=== PATIENT | female | born 1990 | race Caucasian/White ===

== ENCOUNTER → 2017-06-21 | Outpatient (CLI) | payer BC ==
--- NOTE | 2017-06-21 17:46 | RADIOLOGY IMAGING REPORT ---
FACILITY: [facility] - [place] PATIENT NAME: Jaky Solano : 1990 MR: [id number] V: [id number] EXAM DATE: ORDERING PHYSICIAN: MYCHAL SUAZO TECHNOLOGIST: Location: [facility] [place] Patient: Jaky Solano : 1990 Visit/Account:[id number] Date of Sevice: 06/21/2017 GALLBLADDER HISTORY: Right upper quadrant pain COMPARISON: None. FINDINGS: Gallbladder: Unremarkable; no stones or sludge. Liver: Negative. Common duct: Normal, 3.5 mm diameter. Pancreas: Partially obscured by bowel, visualized aspects unremarkable. Right kidney: Right kidney appears unremarkable measuring 11.8 cm in length Upper abdominal aorta and IVC: Patent. Ascites: None visualized. IMPRESSION: Unremarkable right upper quadrant ultrasound Report Dictated By: Lexis Chavez MD at 06/21/2017 5:41 PM Report E-Signed By: Lexis Chavez MD at 06/21/2017 5:42 PM WSN:[email or web address]
== END ==
LOC: US 15:41
PROVIDERS: ATTEND Surgery
DX: R10.11 Right upper quadrant pain (principal)
CPT/HCPCS: 76705

== ENCOUNTER 2018-08-27 02:08 | Inpatient (IN) | payer BC ==
[2018-08-27] VITALS (21 sets, daily range): BP systolic 101–132; BP diastolic 58–84; Ht 165.1 cm; Wt 72.6 kg
[~2018-08-27] VITALS: Ht 165.1 cm; Wt 72.6 kg
[~2018-08-27 02:08] MED LIST: CETI10CA8 PO; PREN-127 PO
[2018-08-27] MEDS ORDERED: LR(*) 1000 ML BAG 1,000 ML IV PRN (02:45)
[2018-08-27 03:24] LABS: PLATELET COUNT, AUTOMATED 203 K/uL (150-450)
[2018-08-27] MEDS ORDERED: CITRIC ACID/SOD CIT 15 ML UDC PO ONE (03:40)
[2018-08-27] MEDS ORDERED: METOCLOPRAMIDE 10 MG/2 ML SDV IVP ONE (03:40)
[2018-08-27] MEDS ORDERED: cefOXitin/DEX(*) 2GM/50ML PREM 50 ML IVPB ONE ×2 (03:40→03:51)
[2018-08-27] MEDS ORDERED: FAMOTIDINE 20 MG/50 ML PREMIX IVPB ONE (03:40)
[2018-08-27] MEDS ORDERED: ONDANSETRON 4 MG/2 ML VIAL IVP ONE (03:40)
[2018-08-27] MEDS ORDERED: ONDANSETRON 4 MG/2 ML VIAL ONE (03:51)
[2018-08-27] MEDS ORDERED: METOCLOPRAMIDE 10 MG/2 ML SDV ONE (03:51)
[2018-08-27] MEDS ORDERED: FAMOTIDINE(*) 20MG/50ML PREMIX 50 ML IVPB ONE (03:51)
[2018-08-27] MEDS ORDERED: DIPH-740 PO (04:28)
[2018-08-27] MEDS ORDERED: OXYTOCIN 10 UNIT/ML SDV ONE ×2 (05:08→06:55)
[2018-08-27] MEDS ORDERED: MORPHINE PF 5 MG/10 ML AMP ONE (05:08)
[2018-08-27] MEDS ORDERED: fentaNYL CITR 100 MCG/2 ML AMP ONE (05:08)
[2018-08-27] MEDS ORDERED: KETOROLAC 30 MG/ML VIAL ONE (06:09)
[2018-08-27] MEDS ORDERED: ePHEDrine 25 MG/5 ML DISP.SYR IVP ONE (06:45)
[2018-08-27] MEDS ORDERED: OXYTOCIN 30 UNIT/NS 500 ML 500 ML IV PRN (07:27)
[2018-08-27] MEDS ORDERED: ONDANSETRON 4 MG/2 ML VIAL IV PRN (07:30)
[2018-08-27] MEDS ORDERED: SIMETHICONE 80 MG CHEW CHEW PRN (07:30)
[2018-08-27] MEDS ORDERED: ACETAMINOPHEN 325 MG TAB PO PRN (07:30)
[2018-08-27] MEDS ORDERED: ZOLPIDEM TARTRATE 5 MG TAB PO PRN (07:30)
[2018-08-27] MEDS ORDERED: PROMETHAZINE 25 MG/ML 1 ML AMP IVP PRN (07:30)
[2018-08-27] MEDS ORDERED: LANOLIN OINT 7 GM TUBE TP PRN (07:30)
--- NOTE | 2018-08-27 07:39 | Post Operative Note ---
Operative Note - HEAVY LINE TECHNICIAN Operative Day Date: Aug 27, 2018 Time: 07:30 Physicians Surgeon: Miguel Anesthesia: Spinal Diagnosis Pre-Op Diagnosis: 39 week IUP Breech Post-Op Diagnosis: same Procedure Findings: female, breech, RSA, Apgars 9, 9 Procedure(s): Primary LTCS Complications: none Fluids Fluids: 1000 ml Estimated Blood Loss: 300 ml Dictated Date OP Note Dictated: Aug 27, 2018 Time OP Note Dictated: 07:31 Copies to: TONYA ALEX MD ; TONYA ALEX MD Aug 27, 2018 07:39
--- NOTE | 2018-08-27 07:48 | Anesthesia OB Pre-Anes Eval ---
History of Present Illness Anesthesia Start Date: Aug 27, 2018 Anesthesia Start Time: 06:01 OB Anesthesia Diagnosis: spontaneous labor, other (Breech) Complications: Breech EDC: Aug 28, 2018 : 1 Para: 0 Vital Signs: Vital Signs 08/27/18 08/27/18 03:10 07:35 Temp 98.7 Pulse 72 Resp 17 B/P (MAP) 112/71 (85) Pulse Ox 94 O2 Delivery Room Air Pain Ratin Heart Tones: 136 Result Diagram: 08/27/18 0312 Height (Inches): 65.00 Weight (Pounds): 160 Past Medical History Medical History: no pertinent history Surgical History: tonsillectomy, other (shoulder) Previous Anesthesia: general Attended Childbirth Classes?: No Hx Anesthesia Reactions: No Hx Family Anesthesia Reaction: No Home Meds Reported Medications Diphenhydramine Hcl (BENADRYL) 25 Mg Capsule, 50 MG PO QHS, CAPSULE 08/27/18 Vits W-Ca,Fe,Fa(<1MG) ( VITAMINS) 1 Each Tablet, 1 EACH PO DAILY, TAB 08/09/18 Cetirizine Hcl (ZYRTEC) 10 Mg Capsule, 10 MG PO QDAY, CAPSULE 08/09/18 Anesthesia OB ROS Neurological: No migraines/headaches, No seizures, No neuropathy, No other ENT: Denies Tooth caps, Denies Loose teeth, Denies Chipped teeth, Denies Dentures, Denies Bridges, Denies Retainers, Denies Veneers, Denies Implants, Denies Tongue ring, Denies Other Pulmonary: No asthma, No smoker (pks/day/yrs), No other Airway Class: ll Cardiovascular ROS: No edema, No arrhythmia, No other GI ROS: NPO Last Solids Date: Aug 27, 2018 Last Solids Time: 02:00 ROS: No Herpes, No STD(s), No Liver Disease, No Renal Disease, No Other Endocrine ROS: No diabetes, No gestational diabetes, No thyroid disorder, No other Musculoskeletal ROS: No low back pain, No low back injury, No scoliosis, No other ASA Classification: 2 Assessment and Plan Anesthesia Plan: ROMMEL Anesthesia Stop Day: Aug 27, 2018 Anesthesia Stop Time: 07:37 CHANCE GO CRNA Aug 27, 2018 07:48
[2018-08-27] MEDS ORDERED: NALBUPHINE HCL 10 MG/ML AMP IVP PRN (08:05)
--- NOTE | 2018-08-27 08:17 | OPERATIVE REPORT 1 ---
EVENT DATE: August 27, 2018 SURGEON: Walter Rivera MD ANESTHESIOLOGIST: [*] ANESTHESIA: Spinal. MACHINE ENGRAVER: [*] PREOPERATIVE DIAGNOSIS 1. 39-week intrauterine . 2. Breech presentation. POSTOPERATIVE DIAGNOSIS 1. 39-week intrauterine . 2. Breech presentation. PROCEDURE PERFORMED Primary low transverse section via Pfannenstiel skin incision. ESTIMATED BLOOD LOSS 300 cc. FLUIDS 1000 cc IV crystalloid. URINE OUTPUT 550 cc. FINDINGS Female infant in the left sacrum anterior sarika breech presentation. Apgars were 9 and 9. Normal appearing placenta, uterus, tubes and ovaries. DESCRIPTION OF PROCEDURE The patient was brought to the operating room and spinal anesthetic was administered. She was then placed in the dorsal supine position with a leftward tilt and prepped and draped in the usual fashion. Using a knife, a Pfannenstiel skin incision was made, carried through to the underlying rectus fascia. This was nicked in the midline and extended laterally. Rectus muscles were dissected off superiorly and inferiorly and then in the midline. Peritoneum was entered sharply and this was incision was extended. Bladder blade was inserted. Vesicouterine peritoneum was entered sharply and extended laterally and a bladder flap was created digitally. The bladder blade was reinserted here, retracting the bladder well away from the lower uterine segment, which then received a low transverse incision with a scalpel to the intra-amniotic space. There was a scant amount of clear fluid on amniotomy. The hand was inserted and the infant in right sacrum anterior position was elevated to the incision and fundal pressure was applied. The infant's sacrum delivered to the level of the mid abdomen and both knees were then flexed and rotated at the hip in order to deliver the legs. Baby was rotated to sacrum anterior and further delivered down to the level of the shoulders. Both arms were delivered by flexing at the elbow and shoulder and sweeping the arm across the chest. Once arms were delivered, fundal pressure affected delivery of the infant's head without further manipulation. Mouth and nose were bulb suctioned. The cord was clamped, cut and the infant was passed to awaiting resuscitation team. Cord sample was obtained. Placenta was delivered manually. Uterus was exteriorized and clear of clots and debris. Vu clamps were placed for hemostasis while the uterine repair was performed with a #1 Monocryl and a running locking stitch. Second suture of the same type was used to imbricate the first layer, completing a two layer closure. The uterus was then returned to the abdomen and bilateral pelvic gutters were irrigated and swept clear of clots and debris. The incision was inspected in situ and found to be hemostatic. Therefore, the parietal peritoneum was repaired using a 3-0 Vicryl Plus in a running and nonlocking stitch. Rectus muscles were reapproximated in midline with the same stitch. A few capillary bleeders were cauterized and the rectus fascia was then repaired using 0 Vicryl and a running and nonlocking stitch. Subcuticular space was irrigated, swept clear of clots and debris. Capillary bleeders were cauterized. The subcuticular space was then closed with a 3-0 Vicryl Plus in a running nonlocking stitch and the skin was repaired with 4-0 Monocryl simple subdermal and covered with Dermabond skin adhesive. She tolerated the procedure well. Sponge, lap, needle and instrument counts were all correct x3. She was taken to recovery in stable condition. IVORY
[2018-08-27] MEDS: DOCUSATE CALCIUM 240 MG CAP PO SCH ×2 (09:00→21:36)
[2018-08-27] MEDS: FAMOTIDINE 20 MG TAB PO SCH ×2 (09:00→21:36)
[2018-08-27] MEDS ORDERED: IBUPROFEN 800 MG TAB PO SCH (09:00)
[2018-08-27] MEDS: KETOROLAC 30 MG/ML VIAL IVP SCH ×3 (12:06→23:40)
[2018-08-27] MEDS ORDERED: LR(*) 1000 ML BAG 1,000 ML ONE (20:18)
[2018-08-27] MEDS: DLR(*) 1000 ML BAG 1,000 ML IV PRN (22:00)
[2018-08-28 02:30] VITALS: BP 114/70
[2018-08-28] MEDS: DLR(*) 1000 ML BAG 1,000 ML IV PRN (04:55)
[2018-08-28] MEDS: IBUPROFEN 800 MG TAB PO SCH ×3 (05:57→21:07)
[2018-08-28 06:28] LABS: PLATELET COUNT, AUTOMATED 153 K/uL (150-450)
[2018-08-28 06:42] VITALS: BP 114/61
[2018-08-28 07:30] VITALS: BP 114/67
--- NOTE | 2018-08-28 08:38 | OB/GYN Progress Note ---
OB Subjective Progress Notes Subjective Anemic when arrived and now with hemodilution it ia worse. No significant symptoms however. GI: NEG Nausea : Voiding Well (PAEZ) Pain: Mild OB Objective Physical Exam Vital Signs Date Time Temp Pulse Resp B/P (MAP) Pulse Ox O2 Delivery O2 Flow Rate FiO2 08/28/18 06:42 98.7 76 16 114/61 (78) 97 Room Air Intake and Output 08/28/18 07:00 Intake Total 2800 ml Output Total 4125 ml Balance -1325 ml Intake Oral 800 ml IV Total 1000 ml Other 1000 ml Output Urine Total 3825 ml Estimated Blood Loss 300 ml General Appearance: Alert/Awake/No Acute Distress Neurological: No Gross deficits Eyes: Normal Extraocular Movement & Vison Cardiovascular: Normal Rhythm & Peripheral Pulses, Regular Rate and Rhythm Respiratory: No Respiratory Distress, Clear to Auscultation Abdomen: Soft, Non-Tender, Non-Distended, Fundus Firm, Non-Tender Incision: Clean, Dry, Intact, Dermabond Extremities: Warm, Edema (SLIGHT) Integumentary: Skin Intact without Lesions or Rash Psychological: Alert & Oriented X3, Appropriate Mood & Affect Result Diagram: 08/28/18 0617 Assessment and Plan HUMAN RESOURCES PARTNER Plan: Routine Post- Care, Routine Post-Op Care, Discharge Home Tomorrow Problems: (1) 39 weeks gestation of (2) delivery indicated due to breech presentation (3) Other specified aftercare following surgery Assessment & Plan: Remove paez and ambulate. Saline lock IV. Tolerating regular diet already. (4) Anemia due to acute blood loss Assessment & Plan: started iron but appears stable as is. Will monitor symptoms. TONYA ALEX MD Aug 28, 2018 08:34
[2018-08-28] MEDS ORDERED: INFLUENZA VIRUS VAC 0.5ML SYR IM ONLY ONE (09:00)
[2018-08-28] MEDS ORDERED: MEASLES,MUMP,RUBELLA VAC 0.5ML SUBQ ONE (09:00)
[2018-08-28] MEDS ORDERED: DIPHTH/TETANUS/ACEL. PERTUSSIS IM ONLY ONE (09:00)
[2018-08-28] MEDS: FAMOTIDINE 20 MG TAB PO SCH ×2 (09:12→21:07)
[2018-08-28] MEDS: FERROUS SULFATE 325 MG TAB PO SCH (09:12)
[2018-08-28] MEDS: DOCUSATE CALCIUM 240 MG CAP PO SCH ×2 (09:12→21:07)
--- NOTE | 2018-08-28 09:18 | Anesthesia Post Eval Note ---
Anesthesia Post Eval Note Vital Signs 08/28/18 06:42 Temp 98.7 Pulse 76 Resp 16 B/P (MAP) 114/61 (78) Pulse Ox 97 O2 Delivery Room Air Pt able to participate in Eval: Yes Cardiovascular Status: Satisfactory Respiratory Status: Satisfactory Pain Managment: Satisfactory PO Nausea/Vomiting: Satisfactory Temperature Management: Satisfactory Mental Status: Satisfactory, Alert, Oriented X3 Post-Op Hydration Status: Satisfactory, Tolerating PO Well Anesthesia Type: CHANCE COLBERT CRNA Aug 28, 2018 09:18
[2018-08-28 12:00] VITALS: BP 114/60
[2018-08-28 16:00] VITALS: BP 115/79
[2018-08-28 20:30] VITALS: BP 132/78
[2018-08-28] MEDS: oxyCODON/ACET (*)5/325MG (CII) 1 TAB TAB PO PRN (21:07)
[2018-08-29 00:30] VITALS: BP 125/81
[2018-08-29] MEDS: IBUPROFEN 800 MG TAB PO SCH ×2 (06:30→14:10)
[2018-08-29] MEDS: oxyCODON/ACET (*)5/325MG (CII) 1 TAB TAB PO PRN ×2 (07:26→12:52)
[2018-08-29 07:31] VITALS: BP 117/74
[2018-08-29] MEDS: FAMOTIDINE 20 MG TAB PO SCH (08:07)
[2018-08-29] MEDS: DOCUSATE CALCIUM 240 MG CAP PO SCH (08:07)
[2018-08-29] MEDS: FERROUS SULFATE 325 MG TAB PO SCH (08:08)
--- NOTE | 2018-08-29 10:20 | OB/GYN Progress Note ---
OB Subjective Progress Notes Subjective A little more pain today than in past but tolerable with medication. Ambulating well and tolerating regular diet. Wants to go home. GI: NEG Nausea : Voiding Well OB Objective Physical Exam Vital Signs Date Time Temp Pulse Resp B/P (MAP) Pulse Ox O2 Delivery O2 Flow Rate FiO2 08/29/18 07:31 99.5 70 16 117/74 (88) 94 Room Air Intake and Output 08/29/18 07:00 Intake Total 1040 ml Output Total 1200 ml Balance -160 ml Intake Oral 1040 ml Output Urine Total 1200 ml # Voids 1 General Appearance: Alert/Awake/No Acute Distress Neurological: No Gross deficits Eyes: Normal Extraocular Movement & Vison Cardiovascular: Normal Rhythm & Peripheral Pulses, Regular Rate and Rhythm Respiratory: No Respiratory Distress, Clear to Auscultation Abdomen: Soft, Non-Tender, Non-Distended, Fundus Firm, Non-Tender Incision: Clean, Dry, Intact, Dermabond Extremities: Warm, Edema (SLIGHT) Integumentary: Skin Intact without Lesions or Rash Psychological: Alert & Oriented X3, Appropriate Mood & Affect Result Diagram: 08/28/18 0617 Assessment and Plan PHYSICAL THERAPY AID Plan: Discharge Home Today Problems: (1) 39 weeks gestation of (2) delivery indicated due to breech presentation (3) Other specified aftercare following surgery Assessment & Plan: Home later today. Reviewed discharge instruction and precautions. F/U at 2 weeks. (4) Anemia due to acute blood loss Assessment & Plan: Clinically she does not appear anemic. Ambulates fine and vitals normal. Indices are not microcytic which makes me wonder if it is an anemia problem of production. She states it has been her whole life she has had this problem and hasn't been able to donate blood. Her mother and grandmother have had anemia. She has taken iron off and on over the years and says she responds to it. Perhaps a renal or endocrine problem? Will check some preliminary labs today and allow her to recover from and delivery and recheck at 2 weeks and at 6 weeks. Heme consult if persists. TONYA ALEX MD Aug 29, 2018 10:20
[2018-08-29] MEDS ORDERED: IBUP800T37 PO (10:24)
[2018-08-29] MEDS ORDERED: FERR-53 PO (10:24)
[2018-08-29] MEDS ORDERED: OXYC-854 PO (10:24)
--- NOTE | 2018-08-29 10:26 | OB/GYN Discharge Summary ---
Discharge Summary Reason for Hosp/Final Diag: (1) 39 weeks gestation of (2) delivery indicated due to breech presentation (3) Other specified aftercare following surgery Hospital Course & Plan: Home later today. Reviewed discharge instruction and precautions. F/U at 2 weeks. (4) Anemia due to acute blood loss Hospital Course & Plan: Clinically she does not appear anemic. Ambulates fine and vitals normal. Indices are not microcytic which makes me wonder if it is an anemia problem of production. She states it has been her whole life she has had this problem and hasn't been able to donate blood. Her mother and grandmother have had anemia. She has taken iron off and on over the years and says she responds to it. Perhaps a renal or endocrine problem? Will check some preliminary labs today and allow her to recover from and delivery and recheck at 2 weeks and at 6 weeks. Heme consult if persists. Lates Vital Signs Vital Signs Date Time Temp Pulse Resp B/P (MAP) Pulse Ox O2 Delivery O2 Flow Rate FiO2 08/29/18 07:31 99.5 70 16 117/74 (88) 94 Room Air Weight (Pounds): 160 Result Diagram: 08/28/18 0617 Condition: Improved Discharge: Home, Self Mcc Meds Active Scripts Oxycodone Hcl/Acet 5/325 Mg (ENDOCET 5-325 TABLET) 1 Each Tablet, 1 EACH PO Q4H PRN for PAIN, #30 TAB 0 Refills Prov:TONYA RIVERA MD 08/29/18 Reported Medications Diphenhydramine Hcl (BENADRYL) 25 Mg Capsule, 50 MG PO QHS, CAPSULE 08/27/18 Vits W-Ca,Fe,Fa(<1MG) ( VITAMINS) 1 Each Tablet, 1 EACH PO DAILY, TAB 08/09/18 Cetirizine Hcl (ZYRTEC) 10 Mg Capsule, 10 MG PO QDAY, CAPSULE 08/09/18 Follow up Referrals: MEDICAL RECEPTIONIST - In 6 Weeks @ [facility] with TONYA RIVERA MD Follow up with: Dr. Rivera [phone] Follow up in: 6 wks PP or PO, 2 wks PO Discharge Diet: As Tolerates Discharge Activity: As Tolerates, No Heavy Lifting x 6 wks, No Heavy Lifting > 10lb, Pelvic Rest Copies to: TONYA RIVERA MD ; TONYA RIVERA MD Aug 29, 2018 10:26
== END 2018-08-29 16:50 | disposition home or self-care (01) | DRG 787 ==
LOC: INTOOBSV 02:43 → UNDOADMOB 02:43 → OBSVTOIN 02:43 → OB 02:43
PROVIDERS: ADMIT Obstetrics & Gynecology; ATTEND Obstetrics & Gynecology
PROC: 10D00Z1 Extraction of Products of Conception, Low, Open Approach (ICD-10-PCS; principal; 2018-08-27 06:00)
DX: O32.1XX0 Maternal care for breech presentation, not applicable or unspecified (principal); D62 Acute posthemorrhagic anemia; O99.02 Anemia complicating childbirth; Z3A.39 39 weeks gestation of pregnancy; Z37.0 Single live birth; Z88.2 Allergy status to sulfonamides; Z91.040 Latex allergy status
CPT/HCPCS: 36415; 82040; 82247; 82310; 82374; 82435; 82565; 82947; 84075; 84132; 84155; 84295; 84450; 84460; 84520; 85014; 85018; 85025; 85045; 86703; 86850; 86900; 86901; J0694; J1885; J2270; J2405; J2590; J2765; J3010; J7120